=== PATIENT | male | born 1985 | race African-American/Black ===

== ENCOUNTER 2016-12-07 18:40 | Emergency (ER) | payer OTHER ==
[~2016-12-07] VITALS: Ht 185.4 cm; Wt 92.1 kg
[2016-12-07 18:58] VITALS: BP 152/78
--- NOTE | 2016-12-07 20:32 | ED UPPER/LOWER EXTREMITY COMPL ---
History of Present Illness General Chief Complaint: General Adult Stated Complaint: LEFT SHOULDER PAIN FOR 2XWEEKS Source: patient Exam Limitations: no limitations Vital Signs & Intake/Output Vital Signs & Intake/Output Vital Signs Date Time Temp Pulse Resp B/P B/P Pulse O2 O2 Flow FiO2 Mean Ox Delivery Rate 12/07 2114 4.0 12/078 97.1 100 18 152/78 96 Room Air ED Intake and Output 12/08 0000 12/07 1200 Intake Total Output Total Balance Patient 203 lb Weight Allergies Coded Allergies: No Known Allergies (12/07/16) Reconcile Medications Cyclobenzaprine HCl 10 MG TABLET 1 TAB PO TID MUSCLE RELAXER (Reported) Cyclobenzaprine HCl 10 MG TABLET 1 TAB PO 4 TIMES/DAY PRN MUSCLE SPASM Ibuprofen 800 MG TABLET 1 TAB PO 4 TIMES/DAY PRN PAIN Meloxicam 7.5 MG TABLET 1 TAB PO DAILY PAIN (Reported) Triage Note: 31 YEAR OLD MALE STATES THAT HE WAS DIAGNOSED WITH TORTACOLIS 2 WEEKS AGO, HAS BEEN HAVING L SHOULDER PAIN THAT SHOOTS DOWN HIS ARM AND L HAND NUMBNESS. WAS STARTED ON STEROIDS WITH NO RELIEF. Triage Nurses Notes Reviewed? 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 He notes that "the medicine doesn't seem to be working... they also gave me steroids and that doesn 't seem to work either." He notes muscle spasm and tenderness in the left upper back and neck area. No numbness, tingling, weakness. He is otherwise well. Past History Travel History Traveled to [place] past 21 day No Medical History Any Pertinent Medical History? see below for history Neurological: NONE EENT: NONE Cardiovascular: hypertension Respiratory: NONE Gastrointestinal: NONE Hepatic: NONE Renal: NONE Musculoskeletal: NONE Psychiatric: NONE Endocrine: NONE Blood Disorders: NONE Cancer(s): NONE [employer] TRAINEE/Reproductive: NONE Surgical History Surgical History: none Psychosocial History What is your primary language Northern Irish Tobacco Use: Never used ETOH Use: denies use Illicit Drug Use: denies illicit drug use Family History Hx Contributory? No Review of Systems Review of Systems Constitutional: Reports: no symptoms. EENTM: Reports: no symptoms. Respiratory: Reports: no symptoms. Cardiovascular: Reports: no symptoms. Gastrointestinal/Abdominal: Reports: no symptoms. Genitourinary: Reports: no symptoms. Musculoskeletal: Reports: no symptoms. Skin: Reports: no symptoms. Neurological/Psychological: Reports: no symptoms. Hematologic/Endocrine: Reports: no symptoms. Immunological: Reports: no symptoms. All Other Systems: Reviewed and Negative Physical Exam Physical Exam General Appearance: well developed/nourished, mild distress Head: atraumatic Eyes: Bilateral: PERRL, EOMI. Ears, Nose, Throat: normal pharynx, normal ENT inspection, hearing grossly normal Neck: normal inspection, supple, left paracervical and trapezius muscle spasm and tenderness to palpation. Cardiovascular/Respiratory: regular rate/rhythm Back: normal inspection Shoulder Left: as above... left muscle spasm and tenderness to palpation. Skin: intact, normal color, warm/dry Lymphatic: no anterior cervical medhat Progress Differential Diagnosis: sprain, muscle spasm vs other. Plan of Care: Orders Procedure Date/time Status EKG 12/07 1901 Active Departure Departure Disposition: HOME OR SELF CARE Condition: Stable Clinical Impression Primary Impression: Muscle spasm Referrals: PATIENT HAS NO PRIMARY CARE DR (PCP/Family) Departure Forms: Customer Survey General Discharge Information Prescriptions: Current Visit Scripts Ibuprofen 1 TAB PO 4 TIMES/DAY PRN PAIN #90 TAB Cyclobenzaprine HCl 1 TAB PO 4 TIMES/DAY PRN MUSCLE SPASM #90 TAB Ref 1
[2016-12-07] MEDS ORDERED: MELOXICAM7.5 M1 PO (20:46)
[2016-12-07] MEDS ORDERED: CYCLOBENZAPRINE10 M1 PO ×2 (20:47→20:55)
[2016-12-07] MEDS ORDERED: IBUPROFEN800 M1 PO (20:55)
== END 2016-12-07 21:17 ==
LOC: ERH 18:40
DX: M62.830 Muscle spasm of back (principal)
CPT/HCPCS: 93005; 93010; 96372; J1885